=== PATIENT | male | born 1930 | race Caucasian/White ===

== ENCOUNTER → 2016-08-27 16:18 | Outpatient (CLI) | payer MEDICARE, BC ==
[2016-06-26 01:25] VITALS: BMI 22.3
[~2016-08-27 16:18] MED LIST: BAYER CHEWABLE81 MG PO; BUMEX 1 MG TAB1 MG PO; BUMEX2 MG PO; CARDIZEM CD180 MG PO; CORDARONE200 MG PO; COUMADIN2.5 MG PO; COUMADIN5 MG PO; ENTRESTO 24 MG1 EACH PO; FERROUS SULFAT140 MG PO; FLUTICASONE PRO16 GM NS; HYDROCHLOROTH12.5 M1 PO; LASIX20 MG PO; LEVAQUIN500 MG PO; LOTENSIN20 MG PO; METOPROLOL TART50 MG PO; MIRALAX17 GM PO; MUCINEX600 MG PO; MUCOMYST 2800 MG/4 M PO; NEXIUM40 MG PO; NORVASC5 MG PO; OMNICEF300 MG PO; PEPCID40 MG PO; PLAVIX75 MG PO; PRAVACHOL20 MG PO; PRAVASTATIN SOD10 MG PO; PRILOSEC20 MG PO; SINGULAIR10 MG PO; SYMBICORT 80-10.2 GM INH; TESSALON PERLE100 MG PO; TOPROL XL50 MG PO; ULTRAM50 MG PO; WATER PILL; XARELTO15 MG PO; ZITHROMAX250 MG PO; ZOFRAN ODT4 MG/UDTAB PO
[2016-08-27 16:59] LABS: ANION GAP 8.3 mmol/L (8-16); CALCIUM 8.6 mg/dL (8.5-10.1); CARBON DIOXIDE 34.2 mmol/L (21.0-32.0); CREATININE - SERUM 2.6 mg/dL (0.6-1.3); POTASSIUM - SERUM 4.5 mmol/L (3.5-5.1)
== END | disposition home or self-care (01) ==
LOC: D.LABREF 16:18
PROVIDERS: Internal Medicine Interventional Cardiology
DX: N28.9 Disorder of kidney and ureter, unspecified (principal)

== ENCOUNTER 2016-10-10 11:57 | Inpatient (IN) | payer MEDICARE, BC ==
[~2016-10-10] VITALS: Ht 180.3 cm; Wt 77.6 kg
[~2016-10-10 11:57] MED LIST changes: -ENTRESTO 24 MG1 EACH PO; -NEXIUM40 MG PO; -SYMBICORT 80-10.2 GM INH; -ULTRAM50 MG PO; -ZOFRAN ODT4 MG/UDTAB PO
[2016-10-10 13:15] LABS: BASOPHILS 0.2 % (0.0-2.0); EOSINOPHILS 0 % (0-7); HEMATOCRIT 29.4 % (42.0-54.0); HEMOGLOBIN 8.8 g/dL (13.5-17.5); IMMATURE GRANULOCYTES 0.3 % (0-5); LYMPHOCYTES 5.8 % (15-50); MCH 27.2 pg (26.0-34.0); MCHC 29.9 g/dL (31.0-37.0); MCV 90.7 fL (80.0-100.0); MEAN PLATELET VOLUME 10.7 fL (7.4-10.4); MONOCYTES 8.8 % (2-11); NEUTROPHILS 84.9 % (40-80); PLATELET COUNT 176 10x3/uL (130-400); RBC 3.24 10x6/uL (4.20-6.10); RDW 15.2 % (11.5-14.5); WBC 6.6 10x3/uL (4.8-10.8)
[2016-10-10 13:24] LABS: APTT 30.8 SECONDS (22.8-39.4); INR 1.73 (0.85-1.17); PROTIME 20.2 SECONDS (11.6-15.0)
[2016-10-10 13:29] LABS: ALBUMIN 3.2 g/dL (3.4-5.0); ANION GAP 10.6 mmol/L (8-16); BILIRUBIN - TOTAL 0.72 mg/dL (0.2-1.3); CALCIUM 8.8 mg/dL (8.5-10.1); CARBON DIOXIDE 33.7 mmol/L (21.0-32.0); CREATININE - SERUM 2.8 mg/dL (0.6-1.3); POTASSIUM - SERUM 4.3 mmol/L (3.5-5.1)
[2016-10-10 15:58] LABS: TROPONIN-I 0.202 ng/mL (0.000-0.060)
--- NOTE | 2016-10-10 18:00 | NUR ---
PATIENT TO ROOM AT THIS TIME. IV INTACT. NO COMPLAINTS. SPOKE WITH SON ABOUT MEDS AND MED REC COMPLETED. FAMILY AT BEDSIDE. CALL LIGHT WITHIN REACH.
[2016-10-10] MEDS ORDERED: ENTRESTO 24 MG1 EACH PO (18:43)
[2016-10-10] MEDS ORDERED: SYMBICORT 80-10.2 GM INH (18:44)
[2016-10-10] MEDS ORDERED: NEXIUM40 MG PO (18:45)
[2016-10-10] MEDS ORDERED: ZOFRAN ODT4 MG/UDTAB PO (18:46)
[2016-10-10] MEDS ORDERED: ULTRAM50 MG PO (18:47)
--- NOTE | 2016-10-10 20:15 | NUR ---
PATIENT SITTING UP IN BED. NO SIGNS OF DISTRESS NOTED. BLOOD STARTED BY Carly HOYOS RN. ALERT AND ORIENTED. ASSESSMENT COMPLETED. DENIES ANY NEEDS AT THIS TIME. BED LOW. CALL LIGHT IN REACH.
[2016-10-11 00:09] VITALS: BP 139/54; BMI 22.3
[2016-10-11 03:08] LABS: APPEARANCE CLEAR (CLEAR); BILIRUBIN NEGATIVE (NEGATIVE); COLOR YELLOW (YELLOW); GLUCOSE NEGATIVE (NEGATIVE); KETONE NEGATIVE (NEGATIVE); LEUKOCYTE ESTERASE NEGATIVE (NEGATIVE); NITRITE NEGATIVE (NEGATIVE); PROTEIN NEGATIVE (NEGATIVE); UROBILINOGEN NORMAL (NORMAL)
[2016-10-11 04:00] VITALS: BP 138/68
--- NOTE | 2016-10-11 07:00 | NUR ---
REPORT RECIEVED ASSUMED CARE. PATIENT IN BED WITH IV INTACT. NO COMPLAINTS AT THIS TIME. CALL LIGHT WITHIN REACH.
[2016-10-11 07:27] LABS: BASOPHILS 0.1 % (0.0-2.0); EOSINOPHILS 0 % (0-7); HEMATOCRIT 31.6 % (42.0-54.0); HEMOGLOBIN 9.5 g/dL (13.5-17.5); IMMATURE GRANULOCYTES 0.4 % (0-5); LYMPHOCYTES 4.8 % (15-50); MCH 27.1 pg (26.0-34.0); MCHC 30.1 g/dL (31.0-37.0); MEAN PLATELET VOLUME 11.1 fL (7.4-10.4); MONOCYTES 15.1 % (2-11); NEUTROPHILS 79.6 % (40-80); PLATELET COUNT 151 10x3/uL (130-400); RBC 3.51 10x6/uL (4.20-6.10); RDW 15.4 % (11.5-14.5); WBC 7.4 10x3/uL (4.8-10.8)
[2016-10-11 07:40] LABS: INR 1.72 (0.85-1.17); PROTIME 20.2 SECONDS (11.6-15.0)
[2016-10-11 07:52] LABS: ALBUMIN 2.9 g/dL (3.4-5.0); ANION GAP 8.6 mmol/L (8-16); BILIRUBIN - TOTAL 0.8 mg/dL (0.2-1.3); CALCIUM 8.8 mg/dL (8.5-10.1); CARBON DIOXIDE 33.6 mmol/L (21.0-32.0); CREATININE - SERUM 2.6 mg/dL (0.6-1.3); POTASSIUM - SERUM 4.2 mmol/L (3.5-5.1); PROTEIN - SERUM 7.4 g/dL (6.4-8.2)
[2016-10-11 09:32] VITALS: BP 172/62
[2016-10-11 13:34] VITALS: Ht 180.3 cm; Wt 77.6 kg
[2016-10-11 13:46] VITALS: BP 147/69
--- NOTE | 2016-10-11 17:30 | NUR ---
LEFT AC IV OUT. CATH TIP INTACT. RESTARTED IN RIGHT FA 20 G. X 1 STICK. PATIENT TOLERATED WITH SMALL AMOUNT OF PAIN. NO COMPLAINTS. IV MEDS GIVEN. CALL IGHT WITHIN REACH.
--- NOTE | 2016-10-11 18:45 | NUR ---
PATIENT IN BED WITH EYES CLOSED RESTING QUIETLY. NO COMPLAINTS AT THIS TIME. IV INTACT. CALL IGHT WITHIN REACH.
[2016-10-11 19:18] VITALS: BP 107/53
[2016-10-11 20:00] VITALS: BP 140/60
--- NOTE | 2016-10-11 23:39 | NUR ---
PT LAYING IN BED NO DISTRESS OBSERVED CALL LIGHT IN REACH SRX2 BED LOW AND LOCKED RESPERATIONS EVEN AND UNLBAORED ON ROOM AIR WILL MONITOR
[2016-10-12] VITALS: BP 146/69
[2016-10-12 04:00] VITALS: BP 181/63
--- NOTE | 2016-10-12 04:27 | NUR ---
DR IMELDA CONSTANTINO REGARDING PT BP OF 193/65 WITH HR OF 92 EKG COMPLETED AND PT PUT ON TELEMETRY LOPRESSOR 50 MG BID PO ORDERED AND MAGDA BOYER CALLED AND WATING ON MAGDA TO OVER RIDE MED TO ADMIN
--- NOTE | 2016-10-12 04:36 | NUR ---
50 MG LOPRESSOR ADMIN ORDERED PER DR SEGURA FOR ELEVATED BP WILL REASSES BP
[2016-10-12 06:59] LABS: BASOPHILS 0.1 % (0.0-2.0); EOSINOPHILS 0 % (0-7); HEMATOCRIT 31.2 % (42.0-54.0); HEMOGLOBIN 9.3 g/dL (13.5-17.5); IMMATURE GRANULOCYTES 0.2 % (0-5); LYMPHOCYTES 2.6 % (15-50); MCHC 29.8 g/dL (31.0-37.0); MCV 90.4 fL (80.0-100.0); MEAN PLATELET VOLUME 11.3 fL (7.4-10.4); MONOCYTES 12.3 % (2-11); NEUTROPHILS 84.8 % (40-80); PLATELET COUNT 132 10x3/uL (130-400); RBC 3.45 10x6/uL (4.20-6.10); RDW 15.5 % (11.5-14.5); WBC 8.7 10x3/uL (4.8-10.8)
[2016-10-12 07:13] LABS: PROTIME 23.3 SECONDS (11.6-15.0)
[2016-10-12 07:14] LABS: INR 2.07 (0.85-1.17)
[2016-10-12 07:23] LABS: ALBUMIN 2.8 g/dL (3.4-5.0); ANION GAP 10.8 mmol/L (8-16); BILIRUBIN - TOTAL 0.88 mg/dL (0.2-1.3); CALCIUM 8.8 mg/dL (8.5-10.1); CARBON DIOXIDE 33.4 mmol/L (21.0-32.0); CREATININE - SERUM 2.2 mg/dL (0.6-1.3); POTASSIUM - SERUM 4.2 mmol/L (3.5-5.1); PROTEIN - SERUM 7.5 g/dL (6.4-8.2)
--- NOTE | 2016-10-12 07:57 | NUR ---
SLEEPING QUIETLY AT PRESENT RESP EVEN AND UNLABORED DENIES ANY NEEDS AT THIS TIME.
[2016-10-12 09:00] VITALS: BP 151/58
--- NOTE | 2016-10-12 09:00 | NUR ---
MEDS GIVEN ISAEL WELL AT PRESENT ISAEL WELL AT PRESENT.
--- NOTE | 2016-10-12 11:00 | NUR ---
SLEEPING QUIETLY AT PRESENT RESP EVEN AND UNLABORED AT PRESENT.
--- NOTE | 2016-10-12 13:00 | NUR ---
SLEEPING QUIETLY AT PREENT RESP EVEN UNLABORED AT PRESENT.
--- NOTE | 2016-10-12 15:00 | NUR ---
SITTING UP IN CHAIR AT PRESENT 02 CONT AT 2L N/C AT PRESENT.
[2016-10-12 16:34] VITALS: BP 134/51
--- NOTE | 2016-10-12 17:30 | NUR ---
STATUS REMAINS UNCHGD AT PRESENT.
--- NOTE | 2016-10-12 19:20 | NUR ---
RECIEVED SHIFT REPORT. PT IS LYING IN BED. PT IS ALERT AND ORIENTED BUT HAS SOME INTERMITTENT CONFUSION. IV IS PATENT AND SALINE LOC AT THIS TIME. O2 @ 6 PER OXIMIZER. SCD'S ON. PT REQUIRES MINIMAL ASSISTANCE TURNING IN BED FOR COMFORT AND SKIN CARE. PT STATES PAIN IS 6/10. NO NEEDS ARE VERBALIZED AT THIS TIME. WILL CONTINUE TO MONITOR. SIDE RAILS ARE UP X 2. BED IS IN LOWEST POSITION. BED ALARM IS ON FOR SAFETY. CALL LIGHT IS WITHIN REACH.
--- NOTE | 2016-10-12 22:48 | NUR ---
SHIFT ASSESSMENT COMPLETED. NIGHT MEDS GIVEN WITH NO PROBLEMS. NO NEEDS ARE VOICED. WILL MONITOR. SIDE RAILS X 2. BED LOW. BED ALARM ON. CALL LIGHT IN REACH.
[2016-10-12 23:13] VITALS: BP 138/46
[2016-10-13 04:00] VITALS: BP 128/51
[2016-10-13 06:13] LABS: BASOPHILS 0.1 % (0.0-2.0); EOSINOPHILS 0 % (0-7); HEMOGLOBIN 9.7 g/dL (13.5-17.5); IMMATURE GRANULOCYTES 0.1 % (0-5); LYMPHOCYTES 5.9 % (15-50); MCH 27.2 pg (26.0-34.0); MCHC 30.3 g/dL (31.0-37.0); MCV 89.6 fL (80.0-100.0); MEAN PLATELET VOLUME 11.9 fL (7.4-10.4); MONOCYTES 11.9 % (2-11); PLATELET COUNT 142 10x3/uL (130-400); RBC 3.57 10x6/uL (4.20-6.10); RDW 15.3 % (11.5-14.5); WBC 9.8 10x3/uL (4.8-10.8)
[2016-10-13 06:34] LABS: INR 2.05 (0.85-1.17); PROTIME 23.1 SECONDS (11.6-15.0)
[2016-10-13 06:42] LABS: ALBUMIN 2.8 g/dL (3.4-5.0); ANION GAP 9.3 mmol/L (8-16); CALCIUM 8.6 mg/dL (8.5-10.1); CARBON DIOXIDE 34.1 mmol/L (21.0-32.0); CREATININE - SERUM 2.3 mg/dL (0.6-1.3); POTASSIUM - SERUM 4.4 mmol/L (3.5-5.1); PROTEIN - SERUM 7.1 g/dL (6.4-8.2)
--- NOTE | 2016-10-13 07:30 | NUR ---
REPORT RECEIVED FROM LOOP TENDER NURSE. CALL LIGHT IN REACH.
[2016-10-13 08:37] VITALS: BP 146/47
--- NOTE | 2016-10-13 09:20 | NUR ---
ASSESSMENT COMPLETED. REFUSES SCDs. BED ALARM ON. CALL LIGHT IN REACH. WILL CONTINUE WITH PLAN OF CARE.
--- NOTE | 2016-10-13 10:09 | EC ---
PATIENT:ELIAN LUNA DATE OF SERVICE: 10/10/16 SEX: M MEDICAL RECORD: [id number] DATE OF : [birth year] LOCATION:[facility] AGE OF PATIENT: 86 ADMISSION DATE: 10/10/16 REFERRING PHYSICIAN: INTERPRETING PHYSICIAN: VICKI GIPSON MD ECHOCARDIOGRAM REPORT ECHO CHARGES 4 ECHO COMPLETE CLINICAL DIAGNOSIS: SYNCOPE ECHOCARDIOGRAPHIC MEASUREMENTS (adult normal given) AC root (d.<3.7cm) 3.8 LV Septum d (<1.2 cm> 1.4 Valve Excursion 0.9 LV Septum (systole) 2.0 Left Atria (s.<4.0cm> 5.3 LVPW d(<1.2cm) 1.4 RV (d.<2.3cm) 3.2 LVPW (sytole) 1.9 LV diastole(<5.6CM) 4.8 MV E-F(>70mm/sec) LV systole 2.7 LVOT Diameter 2.2 MV exc.(>10mm) Est.ejection fraction (50-75%) Pericardial Effusion N DOPPLER: LVIT A 60.0 E 96.0 LA RVSP 65.1 LVOT 120 AOP1/2T 406.0 Asc. Ao 247 RVOT 61.0 RA PA 96.0 AV Gradient Peak 25.0 AV Mean 12.0 AV Area 1.8 MV Gradient Peak 6.0 MV Mean 2.1 MV Area COMMENTS: Hand Spinner: Juana MCALLISTER JENNIFER Picker Machine Operator:1 Dr. Gipson TAPE# PACS DATE OF SERVICE: 10/12/2016 1. Left ventricular chamber size is dilated. Left ventricular systolic function is moderately reduced, overall ejection fraction 30%. 2. Left atrium is enlarged at 5.3 cm. Right atrium and right chambers ventricular chamber sizes are as well mildly dilated. 3. Valvular structures: Aortic valve demonstrates mild calcific aortic stenosis. Valve area calculates to 1.8 cm-squared and there is a gradient of 25 mm across the valve. The remaining valvular structures have normal structure and motion. ECHOCARDIOGRAM REPORT [id number] ELIAN LUNA 4. Doppler interrogation elsewise reveals moderate aortic insufficiency, [id number] mitral regurgitation, moderate tricuspid regurgitation, no other valvular insufficiency or stenosis. Pulmonary systolic pressure is elevated estimated at 65 mmHg. 5. No evidence of pericardial effusion or left ventricular thrombus. TRANSINT:[id number] Voice Confirmation ID: [id number] DOCUMENT ID: [id number] VICKI GIPSON MD at 1009 CC: [id number] DICTATION DATE: 10/12/16 1152 SALES AND MARKETING ASSISTANT: 10/12/16 2215 ADM IN [facility] [address] [id number]
--- NOTE | 2016-10-13 10:09 | CN ---
PATIENT NAME:ELIAN GUZMÁN MEDICAL RECORD: [id number] : [birth year] LOCATION:[facility] ADMIT DATE: 10/10/16 ACCOUNT: [id number] CONSULTING PHYSICIAN: VICKI SEGURA MD REFERRING PHYSICIAN: DONAL SPARROW MD DATE OF CONSULTATION: 10/12/2016 DIAGNOSES: 1. Anemia. 2. Gastrointestinal bleed. 3. Coumadin anticoagulation. 4. Cardiomyopathy. 5. Congestive heart failure, chronic systolic dysfunction. 6. Coronary artery disease, prior percutaneous transluminal coronary angioplasty stent. 7. Paroxysmal atrial fibrillation, controlled in sinus rhythm on Cordarone. 8. Hyperlipidemia. HISTORY OF PRESENT ILLNESS: Mr. Guzmán is a gentleman well known to us with a past history of coronary artery disease, previous coronary stenting, the last being March 2016, history of a cardiomyopathy, ejection fraction 25%, chronic congestive heart failure, history of atrial fibrillation, but maintained in sinus rhythm with amiodarone, history of Coumadin anticoagulation due to the atrial fibrillation, history of chronic renal insufficiency, creatinine in the 2-2.5 range. HOSPITAL COURSE: This is a gentleman who presents with a fall, anemia and weakness. He has been seen by GI, felt to not be a candidate for colonoscopy. His hemoglobin is in the 9.3 range. He is on Coumadin for atrial fibrillation, but maintained in sinus rhythm. His breathing is at baseline. He is not having any chest pain or chest discomfort. At this time, his EKG is with no ST-T abnormalities. PHYSICAL EXAMINATION: GENERAL APPEARANCE: Well-nourished, well-developed, appears stated age. Level of distress, comfortable. PSYCHIATRIC: Mental status, alert, normal affect. Orientation, oriented to time, place and person. EYES: Lids and conjunctiva, noninjected. No discharge, no pallor. ENT: Lips, teeth, gums, normal dentition. Oropharynx, no cyanosis, no pallor. NECK: Carotid arteries, bilateral normal upstroke, no bruits, no thrills. JUGULAR VEINS: No jugular venous pressure or distention. CERVICAL LYMPH NODES: Nontender, nonenlarged. THYROID: Not enlarged. Nontender. No nodules. LUNGS: Respiratory effort, unlabored. CHEST: Normal curvature. No thoracic deformity. No chest wall tenderness. Percussion, resonant. Auscultation, clear. No wheezes, no rales, no rhonchi. CARDIOVASCULAR: Precordial exam, nondisplaced. No heaves or pericardial thrills. Rate and rhythm, regular. Heart sounds, normal S1, normal S2. No S3, no gallop, no rub. Systolic murmur, not heard. Diastolic murmur, not heard. EXTREMITIES: No cyanosis, no edema. Peripheral pulses, full and equal in all extremities, except as noted. No bruits appreciated. ABDOMEN: Soft, nondistended. Normal aorta. No bruit. Nontender. No masses. Liver, nontender, no hepatomegaly. Spleen, nontender, no splenomegaly. MUSCULOSKELETAL: No joint tenderness. No joint swelling. No erythema. CONSULT REPORT [id number] ELIAN GUZMÁN NEUROLOGICAL: Normal gait, normal strength, normal tone. SKIN: Warm and dry. REVIEW OF SYSTEMS: The patient reports easy bruising but reports no swollen glands. The patient reports no fever, no night sweats, no significant weight gain, no significant weight loss. No significant exercise tolerance. The patient reports no dry eyes, no irritation, no vision change. Patient reports no difficulty hearing and no ear pain. Patient reports no frequent nose bleeds or nose and sinus problems. Patient reports on arm pain on exertion. No shortness of breath while lying down. No history of heart murmur. Patient reports no cough, no wheezing or coughing up blood. Patient reports no abdominal pain, no vomiting. Normal appetite. No diarrhea and not vomiting blood. No nausea and no constipation. Patient reports no incontinence. No difficulty urinating. No hematuria. No increased frequency. Patient reports no muscle aches. No weakness, no arthralgias, no back pain. No swelling of the extremities. Patient reports no abnormal mole, no jaundice, no rashes. Reports no loss of consciousness. No weakness and no numbness. No seizures, dizziness, or headaches. The patient reports no depression, no sleep disturbance, feeling safe in a relationship and no alcohol abuse. Patient reports on fatigue. Reports no runny nose or sinus pressure. No itching, no hives, and no frequent sneezing. OVERALL IMPRESSION: 1. Congestive heart failure. He has chronic systolic dysfunction. He is on Entresto, Lopressor and IV Lasix at this time stable from the standpoint of heart failure. 2. Ischemic heart disease. His troponin was mildly elevated, but he is having no chest pain, no chest discomfort. He maintains on the above-mentioned cardiac meds as well as pravastatin is stable from the standpoint of ischemic heart disease, no cardiac catheterization or any further medical therapy for ischemic heart disease is needed at this point. 3. Coumadin anticoagulation. He is maintaining sinus rhythm on amiodarone. Obviously with a fall and GI bleed. He is high risk for bleeding. The bleeding risk outweighs that of the benefit of Coumadin. We will discontinue the Coumadin, leave it off at this time. TRANSINT:[id number] Voice Confirmation ID: [id number] DOCUMENT ID: [id number] VICKI SEGURA MD at 1009 CC: [id number] DICTATION DATE: 10/12/16 1239 DOOR SLINGER: 10/12/16 1646 ADM IN [facility] [address] [id number]
--- NOTE | 2016-10-13 11:59 | NUR ---
AWAKE AND ALERT. ORIENTED X3. NO C/O AT THIS TIME. LUNGS HAVE FAINT CRACKLES THROUGHOUT LUNG DESAI. DENIES PRODUCTIVE COUGH. DENIES NEEDS. DR. ORDAZ HERE.
--- NOTE | 2016-10-13 12:06 | NUR ---
AM MEDS ADMINISTERED. BED ALARM ON. CALL LIGHT IN REACH.
[2016-10-13 12:12] VITALS: BP 149/52
--- NOTE | 2016-10-13 14:50 | NUR ---
VISITORS IN ROOM. NO NEEDS VOICED AT THIS TIME. CALL LIGHT IN REACH.
--- NOTE | 2016-10-13 14:55 | NUR ---
Patient Name: ELIAN LUNA Admission Status: ER Accout number: [id number] Admission Date: 10-10-2016 : 1930 Admission Diagnosis: Attending: BRIAN Current LOS: 3 Anticipated DC Date: 10-17-2016 Planned Disposition: Home with Home Health Primary Insurance: MEDICARE A & B Discharge Planning Comments: CM MET WITH PATIENTS SON (DELL) REGARDING D/C NEEDS AND PLANS. PATIENT LIVES WITH HIS SPOUSE AND HIS DAUGTER STAYS 1 WEEK AT A TIME. SON STATED THEY HAVE A PRIVATE CAREGIVER TO STAY WITH HIM WHEN HE DISCHARGES HOME. PATIENTS PCP IS DR. ORDAZ AND PHARMACY IS [facility] IN [place]. PATIENT HAS A WHEELCHAIR, CANE, SHOWER CHAIR, O2 AND PORTABLE O2 AT HOME. THERE ARE NO STEPS OR STAIRS TO ENTER PATIENTS HOME. CM WILL CONTINUE TO FOLLOW PATIENT WITH D/C NEEDS AND PLANS. PCP DR[facility] [place] [phone] DELL (SON) [phone] General Administrator: Nya Javed How many steps to enter\exit or inside your home? 0 0 * PCP DR. ORDAZ 0 * Pharmacy [facility] [place] 0 * Preadmission Environment Home with Family 0 * ADLs Partial Dependent 0 * Partial ADLs (Assistance needed) Ambulation Bathing Dressing Medication Management Toileting Transfers 0 * Equipment Cane Oxygen Shower Chair Wheelchair 0 * List name and contact numbers for known caregivers / representatives who currently or will assist patient after discharge: DELL (SON) [phone] PARTH (SISTER) [phone]) 0 * Community resources currently utilized Other Private Duty Care 0 * Please name any agencies selected above. HOUSE CALLS AND PRIVATE CARE 0 * Additional services required to return to the preadmission environment? Yes 0 * Can the patient safely return to the preadmission environment? Yes 0 * Has this patient been hospitalized within the prior 30 days at any hospital? No 0 Grand Total: 0
--- NOTE | 2016-10-13 16:20 | NUR ---
RESTING WITH EYES CLOSED. RESP EVEN AND UNLABORED. CALL LIGHT IN REACH.
[2016-10-13 16:58] VITALS: BP 122/62
--- NOTE | 2016-10-13 17:37 | NUR ---
IV MEDS AND PO BUMEX ADMINISTERED PER ORDER. CALL LIGHT IN REACH.
--- NOTE | 2016-10-13 18:49 | NUR ---
NO CHANGES IN INITIAL ASSESSMENT. STILL REFUSES SCDs. ALARM ON. CALL LIGHT IN REACH. WILL CONTINUE WITH PLAN OF CARE.
[2016-10-13 20:00] VITALS: BP 131/47
[2016-10-14] VITALS: BP 146/41
[2016-10-14 04:00] VITALS: BP 144/60
--- NOTE | 2016-10-14 05:09 | NUR ---
REC'D PATIENT WAS ALERT AND CONFUSED. DENIED PAIN 2 THIS TIME. PATIENT HAD OXIMIXER IN NOSE. INTRUCTED TO CALL IF NEEDED ANYTHING. BED LOW LOCKED, BED ALARM ON, CALL LIGHT IN REACH.
--- NOTE | 2016-10-14 05:11 | NUR ---
TELEMTRY CALLED STATED THAT PATIENT HR WAS IN THE 30S. CALLED RAPID RESPONSE. DID STERNAL RUB. PATIENT RESPONED TO THAT. RAPID REPONSE TEAM CAME DOWN GOT ABGS AND PUT NON REBREATHER MASK ON GOT HR BACK UP INTO THE 60S. PATIENTS SPEECH WAS GARBLED FOR ABOUT [address] SCAN WAS ORDERD. CALLED DR. JOSHUA WITH THE FINDINGS. SPEECH BECAME CLEAR AFTER ABT 45MINS OF SPEAKING TO THE PATIENT. HAS BEEN CLEAR SINCE.
--- NOTE | 2016-10-14 06:28 | NUR ---
PATIENT IS RESTING COMFORTABLY IN BED. IS EASY TO AROUSE. IS STILL CONFUSED WHEN CONVERSTATING WITH HIM. SON CALLED AFTER THE RAPID RESPONSE LAST NIGHT AND STATED THAT HE WILL BE UP LATER TODAY, IS CONCERNED ABOUT THE CONFUSION. INSTRUCTED PATIENT TO CALL IF NEEDED ANYTHING. BED LOW, LOCK, BED ALARM ON, CALL LIGHT IN REACH.
[2016-10-14 06:34] LABS: BASOPHILS 0 % (0.0-2.0); EOSINOPHILS 0 % (0-7); HEMATOCRIT 31.3 % (42.0-54.0); HEMOGLOBIN 9.4 g/dL (13.5-17.5); IMMATURE GRANULOCYTES 0.2 % (0-5); LYMPHOCYTES 5.3 % (15-50); MCH 26.7 pg (26.0-34.0); MCV 88.9 fL (80.0-100.0); MEAN PLATELET VOLUME 11.9 fL (7.4-10.4); MONOCYTES 9.1 % (2-11); NEUTROPHILS 85.4 % (40-80); PLATELET COUNT 134 10x3/uL (130-400); RBC 3.52 10x6/uL (4.20-6.10); RDW 15.3 % (11.5-14.5); WBC 10.1 10x3/uL (4.8-10.8)
[2016-10-14 06:47] LABS: INR 2.45 (0.85-1.17); PROTIME 26.7 SECONDS (11.6-15.0)
[2016-10-14 07:04] LABS: MAGNESIUM - SERUM 2.3 mg/dL (1.8-2.4); PHOSPHOROUS 4.4 mg/dL (2.5-4.9)
[2016-10-14 07:32] LABS: ALBUMIN 2.8 g/dL (3.4-5.0); ANION GAP 9.9 mmol/L (8-16); BILIRUBIN - TOTAL 1.67 mg/dL (0.2-1.3); CALCIUM 8.7 mg/dL (8.5-10.1); POTASSIUM - SERUM 4.9 mmol/L (3.5-5.1); PROTEIN - SERUM 6.9 g/dL (6.4-8.2)
[2016-10-14 07:33] LABS: CREATININE - SERUM 2.9 mg/dL (0.6-1.3)
[2016-10-14 08:20] VITALS: BP 117/76
--- NOTE | 2016-10-14 09:26 | NUR ---
PROCEDURE CANCELLED FOR TODAY PER HAYDEE HOYOS RN IN IR D/T PT'S INR.
--- NOTE | 2016-10-14 09:50 | NUR ---
UP IN CHAIR AT THIS TIME. AMELIA MAT ALARM IN USE. ASSESSMENT PERFORMED PER FLOWSHEET AND SCHEDULED MEDICATIONS ADMINISTERED. AMIODORONE HELD PER ORDER FROM RAPID RESPONSE NURSE DEACON RUIZ AND TELEPHONE ORDER FROM DR SEGURA. ALL OTHER MEDICATIONS TAKEN WITHOUT DIFFICULTY. DENIES FURTHER NEEDS AT THIS TIME. CALL LIGHT IN REACH, WILL CONTINUE WITH PLAN OF CARE.
--- NOTE | 2016-10-14 11:15 | NUR ---
SCHEDULED MEDICATIONS ADMINISTERED AT THIS TIME. TAKEN WITHOUT DIFFICULTY. FAMILY AND FRIENDS AT BEDSIDE. DENIES NEEDS AT THIS TIME. CALL LIGHT IN REACH, WILL CONTINUE WITH PLAN OF CARE.
[2016-10-14 12:30] VITALS: BP 148/53
--- NOTE | 2016-10-14 13:33 | NUR ---
NUTRITION MONITORING & EVAL CHART REVIEWED, PT VISIT. TOLERATING FULL LIQUID DIET, 100% INTAKE LUNCH. PT FOR PROCEDURE TOMORROW. RD FOLLOWING
--- NOTE | 2016-10-14 13:40 | NUR ---
ASSISTED PT UP TO BEDSIDE COMMODE X2 ASSIST. PT VOIDED WITHOUT DIFFICULTY AND PASSED GAS. FAMILY REMAINS AT BEDSIDE. WAS ASSISTED BACK TO BED AT THIS TIME BY LAURA DEL CID. CALL LIGHT IN REACH, WILL CONTINUE WITH PLAN OF CARE.
[2016-10-14 16:36] VITALS: BP 158/72
[2016-10-14 20:00] VITALS: BP 137/43
--- NOTE | 2016-10-14 20:00 | NUR ---
ASSESSMENT PER FLOWSHEET. LARGE PURPLE BRUISE TO RT TEMPORAL AREA. SALINE LOCK PATENT RT ARM SITE CLEAR. BRUISES NOTED ON BODY. O2 ON VAPOTHERM AT 40L/M. TELM SHOWS SR WITH HR 68-72.NO DISTRESS. HOB UP 40 DEGREES.
--- NOTE | 2016-10-14 21:30 | NUR ---
MEDS GIVEN PER MAR,.
--- NOTE | 2016-10-15 | NUR ---
EYES CLOSED RESPIRATIONS WITH EASE AND UNLABORED.
--- NOTE | 2016-10-15 02:05 | NUR ---
ROUNDED ON PATIENT FOUND O2 OFF AND LYING IN PT'S HAND MT PHONE AND STATES TO CHECK ON PT HIS HR DOWN TO 36. REPLACED OXYGEN ATTEMPTS MADE TO WAKE PT UP NOTIFIED RT STEPHONIE VS TAKEN HR NOW 62 O2 SAT NOW 96% ON VAPOTHERM 100% SERGIO RN FROM ICU CALLED TO COMME ASSESS PT. NO NEW ORDERS. AFTER 20 MIN. PATIENT AROUSEABLE VS STABLE B/P=119/39.HR 64. RESP =18. O2 SAT AT 99%.
--- NOTE | 2016-10-15 03:30 | NUR ---
PATIENT MORE RESPONSIVE TO VERBAL STIMULI. WILL OPEN AND CLOSE EYES CLOSE EYES WHEN NAME CALLED.
[2016-10-15 04:09] VITALS: BP 114/61
--- NOTE | 2016-10-15 06:15 | NUR ---
CRUSHED MEDS AND PUT INTO A TINY AMOUNT OF APPLESAUCE. PATIENT HELD MED IN HIS MOUTH AND WOULD NOT SWALLOW IT. MANUALLY REMOVED APPLESAUCE FROM MOUTH WITH SPOON.
[2016-10-15 06:19] LABS: BASOPHILS 0 % (0.0-2.0); EOSINOPHILS 0 % (0-7); HEMATOCRIT 29.6 % (42.0-54.0); IMMATURE GRANULOCYTES 0.2 % (0-5); LYMPHOCYTES 2.1 % (15-50); MCH 26.9 pg (26.0-34.0); MCHC 30.4 g/dL (31.0-37.0); MCV 88.6 fL (80.0-100.0); MEAN PLATELET VOLUME 11.6 fL (7.4-10.4); MONOCYTES 3.2 % (2-11); NEUTROPHILS 94.5 % (40-80); PLATELET COUNT 120 10x3/uL (130-400); RBC 3.34 10x6/uL (4.20-6.10); RDW 15.6 % (11.5-14.5)
[2016-10-15 06:21] LABS: WBC 5.6 10x3/uL (4.8-10.8)
[2016-10-15 06:52] LABS: INR 2.87 (0.85-1.17); PROTIME 30.3 SECONDS (11.6-15.0)
[2016-10-15 06:57] LABS: ALBUMIN 2.4 g/dL (3.4-5.0); ANION GAP 13.3 mmol/L (8-16); BILIRUBIN - TOTAL 1.38 mg/dL (0.2-1.3); CALCIUM 8.4 mg/dL (8.5-10.1); CARBON DIOXIDE 28.4 mmol/L (21.0-32.0); CREATININE - SERUM 3.1 mg/dL (0.6-1.3); POTASSIUM - SERUM 4.7 mmol/L (3.5-5.1); PROTEIN - SERUM 6.6 g/dL (6.4-8.2)
[2016-10-15 08:40] VITALS: BP 114/42
--- NOTE | 2016-10-15 08:45 | NUR ---
ASSISTED PT UP TO CHAIR AT THIS TIME. VAPOTHERM REMAINS ON AT 40L/MIN. ALERT TO PERSON AND PLACE, BUT DISORIENTED TO TIME AND SITUATION. AMELIA MAT ALARM IN USE FOR FALL PRECAUTIONS. ASSISTED PT WITH MEAL SET UP. CALL LIGHT IN REACH AND DOOR REMAINS OPEN. WILL CONTINUE WITH PLAN OF CARE.
--- NOTE | 2016-10-15 10:14 | NUR ---
SCHEDULED MEDICATIONS GIVEN AT THIS TIME WELL PRN ULTRAM FOR PAIN IN BACK. PT REMAINS ON VAPOTHERM. ASSESSMENT PERFORMED PER FLOWSHEET. UP IN CHAIR WITH AMELIA MAT ALARM IN USE AND CALL LIGHT IN REACH. WILL CONTINUE WITH PLAN OF CARE. DOOR REMAINS OPEN.
--- NOTE | 2016-10-15 11:15 | NUR ---
PT COMPLAINING THAT HE HAS NOT VOIDED YET THIS MORNING. BLADDER SCAN PERFORMED AND 210 ML OF URINE WAS REVEALED IN THE BLADDER. EXPLAINED TO PT THAT THIS COULD BE WHY HE HAS NOT VOIDED YET. PT VERBALIZED UNDERSTANDING. CALL LIGHT IN REACH, WILL CONTINUE WITH PLAN OF CARE.
--- NOTE | 2016-10-15 12:40 | NUR ---
ASSISTED PT BACK TO BED AT THIS TIME X2 ASSIST. POSTITIONED AT 90 DEGREE ANGLE WITH LEGS ELEVATED. SON AT BEDSIDE. WILL CONTINUE WITH PLAN OF CARE.
[2016-10-15 13:31] VITALS: BP 135/48
--- NOTE | 2016-10-15 15:15 | NUR ---
16 PASHTO CALDERON CATHETER INSERTED IN STERILE FASHION. PT TOLERATED WITHOUT COMPLAINTS. URINE SAMPLE AND CULTURE OBTAINED. SON REMAINS AT BEDSIDE. CALL LIGHT IN REACH, WILL CONTINUE WITH PLAN OF CARE.
[2016-10-15 16:27] LABS: APPEARANCE CLEAR (CLEAR); BILIRUBIN NEGATIVE (NEGATIVE); COLOR YELLOW (YELLOW); GLUCOSE NEGATIVE (NEGATIVE); KETONE NEGATIVE (NEGATIVE); LEUKOCYTE ESTERASE NEGATIVE (NEGATIVE); NITRITE NEGATIVE (NEGATIVE); PROTEIN TRACE mg/dL (NEGATIVE); SPECIFIC GRAVITY 1.015 (1.005-1.020); UROBILINOGEN NORMAL (NORMAL)
[2016-10-15 17:19] VITALS: BP 149/50
--- NOTE | 2016-10-15 17:33 | NUR ---
SCHEDULED MEDICATIONS ADMINISTERED AT THIS TIME. PT EATING WITH MODERATE ASSISTANCE FROM DAUGHTER. CALDERON PATENT AND DRAINING TO GRAVITY. DENIES NEEDS AT PRESENT TIME. WILL CONTINUE WITH PLAN OF CARE.
[2016-10-15 21:35] VITALS: BP 125/42
--- NOTE | 2016-10-16 00:56 | NUR ---
REC'D PATIENT LYING SEMI- FOWLERS IN BED. ALERT AND ORIENTED X2. DENIES PAIN @ THIS TIME. MUCUS MEMBRANES MOIST AND PINK. IS BIG SANDY. DENIES VISON PROBLEMS. TELEMTRY RUNNING 68 SINUS. ABDOMEN SOFT, NON TENDER TO TOUCH. BOWELS ACTIVE X4. HAS CALDERON. STRAW COLOR URINE DRAINING TO GRAVITY. CAP REFILL <3 SECS IN UPPER AND LOWER EXTREMITES. EQUAL MILL BEAM FITTER. FULL ROM IN UPPER AND LOWER EXTREMITIES. HAS A VAPOTHERM RUNNING @ 40L. DENIES ANY FURTHER NEEDS @ THIS TIME. INTRUCTED TO CALL IF NEEDED ANYTHING. BED LOW, LOCKED, CALL LIGHT IN REACH, BED ALARM ON.
--- NOTE | 2016-10-16 02:21 | NUR ---
PATIENT IS LYING IN THE BED. IS TAKING VAPOTHERM ON AND OFF. EXPLAINED THE IMPORTANCE OF LEAVING IT ON. IS ALSO PULLING AT HIS CATHETER STATING THAT HE HAS TO PEE. I ALSO TOLD HIM WHAT THE CATHETER WAS FOR. HE VERBALIZED HIS UNDERSTANDING. I DID CALDERON CARE WHILE I WAS IN THE ROOM WITH HIM AND ALSO CHANGED HIS GOWN. BED LOW, LOCKED, CALL LIGHT IN REACH, BED ALARM ON.
--- NOTE | 2016-10-16 04:06 | NUR ---
RESTING QUIETLY O2 ON IV PATENT SR UP X3 CALL LIGHT WITHIN REACH
--- NOTE | 2016-10-16 04:15 | NUR ---
FOUND PATIENT WITH OXYGEN OFF RR AGONOL AT 5.RAPID RESPONSE CALLED. O2 HAD BEEN REPLACED. VS TAKEN O2 SAT AT 50'S HR AT 26. RAPID RESPONSE TEAM HERE PULLED ATROPINE BUT NOT GIVEN HR CAME UP ON IT'S OWN TO 60-70'S. PATIENT STILL HARD TO AROUSE. WITH DEEP STIMULATIION AND VERBAL RESPONSE. PLACED ON 100% NON REBREATHER MASK AT 15 L/M. O2 SAT INCREASED TO 96%. PATIENT STARTING TO MOVE HIS ARMS AND HEAD. NOTIFIED PATIENT'S SON OF PT'S CONDITION.
--- NOTE | 2016-10-16 05:00 | NUR ---
UPDATE CALLED TO DR. SPRAGUE, NO NEW ORDERS RECIEVED
[2016-10-16 05:47] LABS: BASOPHILS 0 % (0.0-2.0); EOSINOPHILS 0 % (0-7); HEMATOCRIT 32.5 % (42.0-54.0); IMMATURE GRANULOCYTES 0.2 % (0-5); LYMPHOCYTES 1.9 % (15-50); MCHC 30.8 g/dL (31.0-37.0); MCV 87.8 fL (80.0-100.0); MEAN PLATELET VOLUME 11.7 fL (7.4-10.4); NEUTROPHILS 91.9 % (40-80); PLATELET COUNT 140 10x3/uL (130-400); RDW 15.6 % (11.5-14.5)
[2016-10-16 05:48] LABS: WBC 11.3 10x3/uL (4.8-10.8)
[2016-10-16 05:49] LABS: ALBUMIN 2.7 g/dL (3.4-5.0); ANION GAP 15.5 mmol/L (8-16); BILIRUBIN - TOTAL 1.18 mg/dL (0.2-1.3); CALCIUM 8.3 mg/dL (8.5-10.1); CARBON DIOXIDE 28.6 mmol/L (21.0-32.0); CREATININE - SERUM 3.5 mg/dL (0.6-1.3); POTASSIUM - SERUM 5.1 mmol/L (3.5-5.1)
--- NOTE | 2016-10-16 07:21 | NUR ---
PATIENT IN BED WITH EYES CLOSED RESTING QUIETLY AT THIS TIME. IV INTACT. FAMILY AT BEDSIDE. CALL LIGHT WITHIN REACH.
--- NOTE | 2016-10-16 08:04 | NUR ---
RESTING IN BED, FAMILY AT BEDSIDE, DENIES NEEDS, BED LOWEST POSITION, CALL LIGHT IN REACH, WILL CONTINUE TO MONITOR
[2016-10-16 08:29] VITALS: BP 139/43
[2016-10-16 12:43] VITALS: BP 132/54
[2016-10-16 12:44] LABS: INR 1.72 (0.85-1.17); PROTIME 20.1 SECONDS (11.6-15.0)
[2016-10-16 15:48] VITALS: BP 117/57
[2016-10-16 21:54] VITALS: BP 137/42
--- NOTE | 2016-10-16 23:45 | NUR ---
PT IS SITTING AT 45 DEGREE ANGLE WITH FAMILY AT THE BEDSIDE AND WAS JUST FINISHING UP WITH HIS RESP TREATMENT. NO DISTRESS NOTED AND HE IS WATCHING TV WITH HIS FAMILY. THE BED IS LOW, RAILS UP X'S 2 WITH THE CALL LIGHT AT HAND.
[2016-10-17 06:32] LABS: BASOPHILS 0 % (0.0-2.0); EOSINOPHILS 0.1 % (0-7); HEMATOCRIT 29.9 % (42.0-54.0); HEMOGLOBIN 9.3 g/dL (13.5-17.5); IMMATURE GRANULOCYTES 0.2 % (0-5); LYMPHOCYTES 0.6 % (15-50); MCH 27.2 pg (26.0-34.0); MCHC 31.1 g/dL (31.0-37.0); MCV 87.4 fL (80.0-100.0); MEAN PLATELET VOLUME 11.3 fL (7.4-10.4); MONOCYTES 7.3 % (2-11); NEUTROPHILS 91.8 % (40-80); PLATELET COUNT 125 10x3/uL (130-400); RBC 3.42 10x6/uL (4.20-6.10); RDW 15.9 % (11.5-14.5); WBC 9.6 10x3/uL (4.8-10.8)
[2016-10-17 06:42] LABS: INR 1.61 (0.85-1.17); PROTIME 19.1 SECONDS (11.6-15.0)
[2016-10-17 07:03] LABS: ALBUMIN 2.4 g/dL (3.4-5.0); BILIRUBIN - TOTAL 0.8 mg/dL (0.2-1.3); CALCIUM 8.2 mg/dL (8.5-10.1); CARBON DIOXIDE 29.4 mmol/L (21.0-32.0); POTASSIUM - SERUM 4.4 mmol/L (3.5-5.1); PROTEIN - SERUM 6.6 g/dL (6.4-8.2); VANCOMYCIN - TROUGH 0.3 ug/mL (10.0-20.0)
--- NOTE | 2016-10-17 08:20 | NUR ---
LONG TERM CARE PHLEBOTOMIST CALLED AT 0718 WITH HR OF 35 AND DROPPING. UPON ENTERING ROOM PT NOTED TO BE SLUMPED OVER IN BED WITH NO RESPIRATIONS. PLACED FLAT IN BED AND CODE BLUE CALLED. SEE CODE RUTHY FORM
--- NOTE | 2016-10-17 09:20 | NUR ---
[facility] HERE TO GET PT
--- NOTE | 2016-10-24 13:49 | CN ---
PATIENT NAME:ELIAN GUZMÁN MEDICAL RECORD: [id number] : [birth year] LOCATION:[id number] ADMIT DATE: 10/10/16 ACCOUNT: [id number] CONSULTING PHYSICIAN: SOMMER GRUBER MD REFERRING PHYSICIAN: DONAL RAMIREZ MD DATE OF CONSULTATION: 10/11/2016 CONSULT REQUESTING PHYSICIAN: DONAL RAMIREZ MD. REASON FOR CONSULTATION: Bilateral pleural effusion. HISTORY OF PRESENT ILLNESS: The patient was admitted with acute shortness of breath as well as after having a fall. The patient denies any loss of consciousness. The patient had similar episode a few times in the past. Denies any fever and chills, no night sweats. The patient had a CT scan of the chest, which showed bilateral pleural effusion and also ground-glass infiltrate in the upper lobe. REVIEW OF SYSTEMS: Mainly in the history of present illness. PAST MEDICAL HISTORY: 1. Hypertension. 2. Congestive heart failure. 3. Coronary artery disease. 4. History of syncopal episode. 5. Chronic hypoxic respiratory failure. PAST SURGICAL HISTORY: 1. He has a CABG in 2004. 2. Prostatectomy. 3. Bilateral carotid endarterectomy. ALLERGIES: HE IS ALLERGIC TO DARVOCET AND DOXYCYCLINE. PRESENT MEDICATIONS: He is on Lasix IV. His other medication is reviewed. PERSONAL AND SOCIAL HISTORY: The patient is a nonsmoker, nondrinker. FAMILY HISTORY: Significant for cardiovascular disease. PHYSICAL EXAMINATION: GENERAL: Now, the patient is lying comfortably. He is wearing nasal cannula. He is not in acute distress. VITAL SIGNS: The blood pressure is 147/69, pulse is 88, respiration is 20, temperature 98.4, SpO2 is 93% on 4 liters nasal cannula. HEENT: Conjunctivae are pink, sclerae nonicteric. NECK: Supple. There is no JVD. CHEST: There are decreased breath sounds at the bases with dullness of percussion. There are bilateral crackles. No wheezing. HEART: Rhythm regular, normal sounds with grade II/ systolic murmur. ABDOMEN: Soft. Bowel sounds present. No hepatosplenomegaly. RECTAL: Deferred. EXTREMITIES: No cyanosis, no clubbing. There is 1+ pedal edema. SKIN: Warm, normal turgor. There is a bruise of the right eyebrow. CENTRAL NERVOUS SYSTEM: The patient is awake and alert. There are no obvious CONSULT REPORT [id number] ELIAN GUZMÁN cranial nerve abnormalities. The gait was not tested. LABORATORY DATA: CBC: The WBC 7.4, hemoglobin 9.5, hematocrit 31.6, platelet count 151. Chemistry: Sodium 140, potassium 4.2, BUN is 47, creatinine 2.6, glucose 121. IMAGING: CT scan of the chest: There is bilateral pleural effusion, right greater than the left. There are ground-glass infiltrate in the upper lobe. There is cardiomegaly. IMPRESSION: 1. Zgqhf-el-keegbti hypoxic respiratory failure. 2. Bilateral pleural effusions, right more than the left, most likely consistent with congestive heart failure. 3. Congestive heart failure exacerbation. 4. Pulmonary edema. 5. Rule out pneumonia. 6. Atelectasis of the right lower lobe. 7. Chronic kidney disease. 8. Possible syncopal episode. 9. Atrial fibrillation. 10. Peripheral vascular disease. RECOMMENDATION: Continue Lasix 40 mg IV b.i.d., I will start him on empiric Rocephin, continue hold Coumadin, thoracentesis on the right side. Dr. Ramirez, once again thank you for involving me in the care of Mr. Guzmán. TRANSINT:[id number] Voice Confirmation ID: [id number] DOCUMENT ID: [id number] SOMMER GRUBER MD at 1349 CC: DONAL RAMIREZ MD [id number] DICTATION DATE: 10/11/16 1640 TITLE ATTORNEY: 10/11/16 2211 DIS IN 10/17/16 [place] [id number] [place] [id number]
--- NOTE | 2016-11-27 15:50 | DS ---
PATIENT:ELIAN GUZMÁN :[birth year] MEDICAL RECORD: [id number] DISCHARGE SUMMARY ADMISSION DATE: 10/10/16 DISCHARGE DATE: 10/17/16 DATE OF ADMISSION: 10/10/2016 DATE OF DISCHARGE: 10/17/2016 ADMITTING DIAGNOSES: Syncope and collapse, anemia, elevated INR, congestive heart failure exacerbation, pleural effusion, bilateral compression fracture of lumbar vertebrae, gastrointestinal bleed requiring more than 4 units of blood in 24 hours that was a chronic problem, pulmonary edema, subclavian steal syndrome, morongo coronary artery disease, chronic kidney disease, atrial fibrillation, hyperlipidemia, renal insufficiency, chronic systolic congestive heart failure, hypertension, edema, murmur, history of prostatectomy, and history of carotid endarterectomy. HOSPITAL COURSE: This is an 86-year-old white male, a gentleman of Dr. Herron'tmo, admitted with diagnoses as outlined above. Details are well-outlined in the history of the present illness, H&P. All events, lab procedures, diagnostic testing are well documented in the records. The patient was admitted. CONSULTANTS: Dr. Sosa of pulmonary; Dr. Wall of GI; Dr. Gipson of cardiology. The patient was put on Protonix and SCDs, electrolyte protocol. He did require blood transfusion of packed cells and was placed on daily weights, telemetry labs and volume closely followed as well as serial radiographs. Other consultants, neurology, Dr. Medina and nephrology, Dr. Kilgore. Unfortunately, a code blue was called. Mr. Guzmán on 10/17/2016 at 2225, was pronounced by Dr. Shah. Cause of is cardiac arrest. 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 TRANSINT:[id number] Voice Confirmation ID: [id number] DOCUMENT ID: [id number] Dictated By: MIMI MCCAIN RN I have interviewed/examined the above patient and agree with these documented findings. DISCHARGE SUMMARY REPORT [id number] ELIAN GUZMÁN MATTHEW DO at 1011 at 1550 CC: [id number] DICTATION DATE: 11/26/16 1646 EARTHMOVING LABOURER: 11/27/16 1331 DIS IN 10/17/[address] [facility] [address] [place] [id number]
== END 2016-10-17 09:20 | DRG 291 ==
LOC: D.ER 11:57 → D.MS 16:12
PROVIDERS: Emergency Medicine; Family Medicine; Internal Medicine Pulmonary Disease; ADMIT Family Medicine Adult Medicine
DX: I13.0 Hypertensive heart and chronic kidney disease with heart failure and stage 1 through stage 4 chronic kidney disease, or unspecified chronic kidney disease (principal); I50.23 Acute on chronic systolic (congestive) heart failure; J96.21 Acute and chronic respiratory failure with hypoxia; G93.41 Metabolic encephalopathy; J90 Pleural effusion, not elsewhere classified; N18.4 Chronic kidney disease, stage 4 (severe); G45.8 Other transient cerebral ischemic attacks and related syndromes; K92.2 Gastrointestinal hemorrhage, unspecified; S32.019A Unspecified fracture of first lumbar vertebra, initial encounter for closed fracture; S32.039A Unspecified fracture of third lumbar vertebra, initial encounter for closed fracture; Z99.81 Dependence on supplemental oxygen; R55 Syncope and collapse; I48.91 Unspecified atrial fibrillation; D64.9 Anemia, unspecified; Z79.01 Long term (current) use of anticoagulants; I73.9 Peripheral vascular disease, unspecified; G20 Parkinson's disease; I25.9 Chronic ischemic heart disease, unspecified; W19.XXXA Unspecified fall, initial encounter; S00.11XA Contusion of right eyelid and periocular area, initial encounter; I46.2 Cardiac arrest due to underlying cardiac condition